=== PATIENT | female | born 1985 | race Caucasian/White ===

== ENCOUNTER 2017-08-28 11:05 | Emergency (ER) | payer MEDICAID ==
[~2017-08-28] VITALS: Ht 162.6 cm; Wt 53.1 kg
[2017-08-28 11:45] VITALS: BP_SYST 109
--- NOTE | 2017-08-28 12:20 | NUR ---
Patient to ER bed 8 to gown for evaluation. Side rails up. Report given to MY RN.
[2017-08-28 12:24] LABS: BASOPHILS # (AUTO) 0.1 K/uL (0.0-0.2); BASOPHILS % (AUTO) 0.9 % (0.0-2.0); HEMATOCRIT 41.2 % (36-48); LYMPHOCYTES # (AUTO) 1.4 K/uL (1.0-5.5); LYMPHOCYTES % (AUTO) 11.7 % (20.5-51.5); MEAN CORPUSCULAR HEMOGLOBIN 31 pg (27-31); MEAN CORPUSCULAR HGB CONC 34 % (32-36); MEAN CORPUSCULAR VOLUME 90 fL (79.0-98.0); MONOCYTES # (AUTO) 0.4 K/uL (0.0-1.0); MONOCYTES % (AUTO) 3.8 % (1.7-9.3); NEUTROPHILS # (AUTO) 9.7 K/uL (1.8-7.7); NEUTROPHILS % (AUTO) 83.6 % (40.0-70.0); PLATELET COUNT (AUTO) 254 K/uL (130-430); RED BLOOD CELL COUNT(AUTO) 4.58 MIL/uL (4.2-6.2); RED CELL DISTRIBUTION WIDTH 11.5 % (9.0-15.0); WHITE BLOOD COUNT (AUTO) 11.6 K/uL (4.8-10.8)
--- NOTE | 2017-08-28 12:27 | NUR ---
32year old female presented to ED with complaints of N/V; pt is currently 14weeks gestataion; reports has low appetite x 3days due to nausea; emesis x 2 days with today being worst approximately 7 episodes of emesis today; pt states 2 "fainting episode" this week; last seen 08/24/[address] Monzon is aware; awaiting for MD assess/mraitza
--- NOTE | 2017-08-28 12:32 | NUR ---
Dr. Ventura at bedside for assess/eval
[2017-08-28 12:36] LABS: CALCIUM 9.4 mg/dL (8.4-11.0); CREATININE 0.56 mg/dL (0.55-1.30); POTASSIUM 4.2 mmol/L (3.5-5.1)
[2017-08-28] MEDS ORDERED: ONDANSETRON HCL 4 MG/2 ML VIAL IVP ONE (12:45)
[2017-08-28] MEDS ORDERED: NACL 0.9% 1,000 ML IV ONE ×2 (12:45→15:00)
--- NOTE | 2017-08-28 12:55 | NUR ---
20G LAC PIV; started NS bolus; pt refused antiemetic at this time
--- NOTE | 2017-08-28 13:00 | NUR ---
family at bedside; pt in stable condition
--- NOTE | 2017-08-28 13:59 | NUR ---
IVF completed; pt reports continues with nausea 02/28; tolerable; refused antiemetics at this time; family at bedside; will continue to monitor
[2017-08-28 14:12] LABS: PROTHROMBIN TIME 10.1 SECS (9.5-12.5)
--- NOTE | 2017-08-28 15:13 | NUR ---
good blood return from LAC PIV; started NS bolus; pt tolerated procedure; nausea improved slightly 6/10; tolerable and does not require intervention at this time; family at bedside
--- NOTE | 2017-08-28 15:23 | NUR ---
endorsed care to BELA Wagner; urine results pending; IVF infusing; family at bedside
--- NOTE | 2017-08-28 15:36 | NUR ---
Pt was complaining of pain to site of 20g IV on the LAC. Noted IV was dislodged. Cleansed site, d/c IV. No redness or swelling noted. Pt tolerated well.
--- NOTE | 2017-08-28 15:40 | NUR ---
# 22 gauge angiocath placed to Left forearm. Use of asceptic technique. Opsite placed over site. Blood return noted. Blood for lab drawn from site. Flushed with 10 cc of normal saline. No evidence of infiltration noted. Patient tolerated well.
[2017-08-28 15:52] LABS: BILIRUBIN,URINE 1+ (NEGATIVE); CLARITY/URINE SL HAZY (CLEAR); COLOR,URINE AMBER (YELLOW); GLUCOSE,URINE NEGATIVE (NEGATIVE); KETONES,URINE 3+ (NEGATIVE); LEUKOCYTE ESTERASE ,URINE NEGATIVE (NEGATIVE); NITRITE, URINE NEGATIVE (NEGATIVE); PROTEIN URINE 1+ (NEGATIVE); UROBILINOGEN,URINE 0.2 (0.2-1.0)
[2017-08-28 15:54] LABS: BLOOD, URINE TRACE (NEGATIVE)
[2017-08-28 16:05] LABS: BACTERIA,URINE MODERATE /HPF (None Seen); MUCUS,URINE 2+ /LPF (None Seen)
[2017-08-28 16:25] VITALS: BP_SYST 109
--- NOTE | 2017-08-28 16:25 | NUR ---
Patient given written and verbal discharge instructions and verbalizes understanding. ER MD discussed with patient the results and treatment provided. Patient in stable condition. ID arm band removed. IV catheter removed intact and dressing applied, no active bleeding. Rx of Zofran given. Patient educated on pain management and to follow up with PMD within 2-3days. Pain Scale 0/10; nausea 6/10; tolerable and does not wish intervention at this time; pt and MD agreeable to discharge home. Opportunity for questions provided and answered.
== END 2017-08-28 16:25 | disposition home or self-care (01) ==
LOC: SED 11:05
DX: O21.0 Mild hyperemesis gravidarum (principal); R19.7 Diarrhea, unspecified; Z3A.13 13 weeks gestation of pregnancy
CPT/HCPCS: 36415; 80048; 81000; 84702; 85025; 85610; 85730; 87086; 87186; 93005; 96360; 96361; 99285; J7030

== ENCOUNTER 2021-05-31 18:28 | Emergency (ER) | payer MEDICAID, SELFPAY ==
[~2021-05-31] VITALS: Ht 162.6 cm; Wt 56.7 kg
[2021-05-31 18:31] VITALS: BP_SYST 144
[2021-05-31 19:40] LABS: BASOPHILS % (AUTO) 0.2 % (0.0-2.0); HEMATOCRIT 40.8 % (36-48); HEMOGLOBIN 13.7 g/dL (12.0-16.0); LYMPHOCYTES # (AUTO) 1.4 K/uL (1.0-5.5); LYMPHOCYTES % (AUTO) 15.3 % (20.5-51.5); MEAN CORPUSCULAR HEMOGLOBIN 31 pg (27-31); MEAN CORPUSCULAR HGB CONC 34 % (32-36); MEAN CORPUSCULAR VOLUME 91 fL (79.0-98.0); MONOCYTES # (AUTO) 0.6 K/uL (0.0-1.0); MONOCYTES % (AUTO) 6.6 % (1.7-9.3); NEUTROPHILS # (AUTO) 7.1 K/uL (1.8-7.7); NEUTROPHILS % (AUTO) 77.9 % (40.0-70.0); PLATELET COUNT (AUTO) 224 K/uL (130-430); RED BLOOD CELL COUNT(AUTO) 4.51 MIL/uL (4.2-6.2); RED CELL DISTRIBUTION WIDTH 13.2 % (9.0-15.0); WHITE BLOOD COUNT (AUTO) 9.1 K/uL (4.8-10.8)
[2021-05-31 19:59] LABS: BILIRUBIN,URINE NEGATIVE (NEGATIVE); BLOOD, URINE 1+ (NEGATIVE); CLARITY/URINE CLEAR (CLEAR); COLOR,URINE YELLOW (YELLOW); GLUCOSE,URINE NEGATIVE (NEGATIVE); KETONES,URINE TRACE (NEGATIVE); LEUKOCYTE ESTERASE ,URINE NEGATIVE (NEGATIVE); NITRITE, URINE NEGATIVE (NEGATIVE); PH,URINE 7.5 (5.0-8.0); PROTEIN URINE NEGATIVE (NEGATIVE); UROBILINOGEN,URINE 0.2 (0.2-1.0)
[2021-05-31 20:07] LABS: ANION GAP 9 (5-15); C-REACTIVE PROTEIN QUANT < 0.2 mg/dL (0-0.5); CALCIUM 8.3 mg/dL (8.4-11.0); CHLORIDE 101 mmol/L (98-107); CREATININE 0.73 mg/dL (0.55-1.30); GLUCOSE 111 mg/dL (70-99); POTASSIUM 3.5 mmol/L (3.5-5.1); SODIUM SERUM 137 mmol/L (136-145); UREA NITROGEN, BLOOD 10 mg/dL (8-21)
[2021-05-31 20:08] LABS: GFR AFRICAN AMERICAN 117 mL/min (>90)
[2021-05-31 20:12] LABS: PROTHROMBIN TIME 10.7 SECS (9.5-12.5)
[2021-05-31 20:13] LABS: ALANINE AMINOTRANSFERASE 20 U/L (12-78); ALBUMIN 3.9 g/dL (3.4-4.8); ASPARTATE AMINOTRANSFERASE 10 U/L (10-37); TOTAL BILIRUBIN 0.5 mg/dL (0.0-1.0)
[2021-05-31 20:49] LABS: BACTERIA,URINE FEW /HPF (None Seen); WBC,URINE 0-3 /HPF (0-3)
[2021-05-31 22:00] VITALS: BP_SYST 135
== END 2021-05-31 22:00 | disposition home or self-care (01) ==
LOC: SED 18:28
DX: U07.1 COVID-19 (principal); F12.90 Cannabis use, unspecified, uncomplicated; Z79.899 Other long term (current) drug therapy
CPT/HCPCS: 36415; 36600; 71045; 80053; 81000; 82550; 82803-TC; 83605; 83880; 84484; 85025; 85379; 85610-TC; 85730-TC; 86140; 93005; 99285